=== PATIENT | female | born 1985 | race Caucasian/White ===

== ENCOUNTER 2018-03-26 10:40 | Emergency (ER) | payer OTHER ==
[2018-03-26 11:01] VITALS: RESP 18
[2018-03-26] MEDS ORDERED: SODIUM CHLORIDE 0.9% 1,000 ML IV ONE (11:16)
--- NOTE | 2018-03-26 11:19 | ED ---
General Adult HPI - General Chief complaint: Nausea/Vomiting/Diarrhea Stated complaint: vomiting Time Seen by Provider: 03/26/18 11:10 Source: patient, RN notes reviewed, old records reviewed Mode of arrival: ambulatory Limitations: no limitations - History of Present Illness Initial comments: 33-year-old female presenting with 1 week history of cough and cold symptoms. She complains of nasal congestion, mild sore throat, she complains of abdominal pain as well as myalgias in her legs. She had several episodes of vomiting over the past 24 hours. This was nonbloody nonbilious. No dysuria. She is currently on her menstrual cycle. She is otherwise healthy, not on any daily medications. She does admit to having one drink of alcohol yesterday evening. - Related Data Home Medications Medication Instructions Recorded Confirmed Ibuprofen [Motrin Ib] 200 mg PO Q6H PRN 03/26/18 03/26/18 Multivitamin,Therapeutic [Thera] 1 tab PO DAILY 03/26/18 03/26/18 Previous Rx's Medication Instructions Recorded Azithromycin [Zithromax Z-pack] 0 mg PO DIRECTED #6 tab 03/26/18 Allergies Allergy/AdvReac Type Severity Reaction Status Date / Time amoxicillin Allergy Anaphylaxis Verified 03/26/18 11:01 Sulfa (Sulfonamide Allergy Unknown Verified 03/26/18 11:01 Antibiotics) Childhood tamsulosin [From Flomax] Allergy Anaphylaxis Verified 03/26/18 11:31 Review of Systems ROS Statement: Those systems with pertinent positive or pertinent negative responses have been documented in the HPI. ROS Other: All systems not noted in ROS Statement are negative. Past Medical History Past Medical History: No Reported History History of Any Multi-Drug Resistant Organisms: None Reported Past Surgical History: Section Past Psychological History: No Psychological Hx Reported Smoking Status: Never smoker Past Alcohol Use History: None Reported Past Drug Use History: None Reported General Exam Limitations: no limitations General appearance: alert, in no apparent distress Head exam: Present: atraumatic, normocephalic Eye exam: Present: normal appearance, PERRL ENT exam: Absent: normal oropharynx (Pharyngeal erythema, no tonsillar swelling or exudate, nasal congestion) Neck exam: Present: normal inspection, full ROM. Absent: tenderness, meningismus Respiratory exam: Present: normal lung sounds bilaterally. Absent: respiratory distress, wheezes Cardiovascular Exam: Present: regular rate, normal rhythm GI/Abdominal exam: Present: soft, tenderness (Mild epigastric tenderness). Absent: distended, guarding, rebound Extremities exam: Present: normal inspection, normal capillary refill. Absent: pedal edema, calf tenderness Neurological exam: Present: alert, oriented X3, CN II-XII intact. Absent: motor sensory deficit Psychiatric exam: Present: normal affect, normal mood Skin exam: Present: warm, dry, intact. Absent: cyanosis, diaphoretic Course Vital Signs 03/26/18 10:58 Temperature 97.8 F Pulse Rate 80 Respiratory 18 Rate Blood Pressure 131/83 O2 Sat by Pulse 99 Oximetry Medical Decision Making - Medical Decision Making 33-year-old female presenting with URI symptoms for the past 7 days. Patient is overall well-appearing with stable vitals. Given the duration of her symptoms and the presence of cough, chest x-rays obtained which is negative for focal pneumonia, patient has leukocytosis and elevated platelet count consistent with an acute infection. CMP is unremarkable, urinalysis negative for infection, influenza is obtained given the myalgias and upper respiratory symptoms, this is negative. Patient will be prescribed azithromycin as her symptoms have been present for the past 7 days. She will follow-up with her primary care physician. - Lab Data Result diagrams: 03/26/18 12:08 03/26/18 12:08 Lab Results 03/26/18 03/26/18 03/26/18 Range/Units 12:08 12:08 12:08 WBC 13.6 H (3.8-10.6) k/uL RBC 4.76 (3.80-5.40) m/uL Hgb 13.8 (11.4-16.0) gm/dL Hct 42.5 (34.0-46.0) % MCV 89.3 (80.0-100.0) fL MCH 28.9 (25.0-35.0) pg MCHC 32.4 (31.0-37.0) g/dL RDW 12.4 (11.5-15.5) % Plt Count 455 H (150-450) k/uL Neutrophils % 84 % Lymphocytes % 12 % Monocytes % 3 % Eosinophils % 1 % Basophils % 0 % Neutrophils # 11.4 H (1.3-7.7) k/uL Lymphocytes # 1.6 (1.0-4.8) k/uL Monocytes # 0.4 (0-1.0) k/uL Eosinophils # 0.1 (0-0.7) k/uL Basophils # 0.0 (0-0.2) k/uL Sodium 144 (137-145) mmol/L Potassium 4.1 (3.5-5.1) mmol/L Chloride 106 (98-107) mmol/L Carbon Dioxide 25 (22-30) mmol/L Anion Gap 13 mmol/L BUN 15 (7-17) mg/dL Creatinine 0.53 (0.52-1.04) mg/dL Est GFR (CKD-EPI)AfAm >90 (>60 ml/min/1.73 sqM) Est GFR (CKD-EPI)NonAf >90 (>60 ml/min/1.73 sqM) Glucose 101 H (74-99) mg/dL Calcium 9.6 (8.4-10.2) mg/dL Total Bilirubin 0.5 (0.2-1.3) mg/dL AST 27 (14-36) U/L ALT 34 (9-52) U/L Alkaline Phosphatase 92 (38-126) U/L Total Protein 8.2 (6.3-8.2) g/dL Albumin 4.8 (3.5-5.0) g/dL Urine Color Urine Appearance (Clear) Urine pH (5.0-8.0) Ur Specific [place] (1.001-1.035) Urine Protein (Negative) Urine Glucose (UA) (Negative) Urine Ketones (Negative) Urine Blood (Negative) Urine Nitrite (Negative) Urine Bilirubin (Negative) Urine Urobilinogen (<2.0) mg/dL Ur Leukocyte Esterase (Negative) Urine RBC (0-5) /hpf Urine WBC (0-5) /hpf Ur Squamous Epith Cells (0-4) /hpf Urine Mucus (None) /hpf Urine HCG, Qual (Not Detectd) Influenza Type A RNA Not Detected (Not Detectd) Influenza Type B (PCR) Not Detected (Not Detectd) 03/26/18 03/26/18 Range/Units 12:19 12:19 WBC (3.8-10.6) k/uL RBC (3.80-5.40) m/uL Hgb (11.4-16.0) gm/dL Hct (34.0-46.0) % MCV (80.0-100.0) fL MCH (25.0-35.0) pg MCHC (31.0-37.0) g/dL RDW (11.5-15.5) % Plt Count (150-450) k/uL Neutrophils % % Lymphocytes % % Monocytes % % Eosinophils % % Basophils % % Neutrophils # (1.3-7.7) k/uL Lymphocytes # (1.0-4.8) k/uL Monocytes # (0-1.0) k/uL Eosinophils # (0-0.7) k/uL Basophils # (0-0.2) k/uL Sodium (137-145) mmol/L Potassium (3.5-5.1) mmol/L Chloride (98-107) mmol/L Carbon Dioxide (22-30) mmol/L Anion Gap mmol/L BUN (7-17) mg/dL Creatinine (0.52-1.04) mg/dL Est GFR (CKD-EPI)AfAm (>60 ml/min/1.73 sqM) Est GFR (CKD-EPI)NonAf (>60 ml/min/1.73 sqM) Glucose (74-99) mg/dL Calcium (8.4-10.2) mg/dL Total Bilirubin (0.2-1.3) mg/dL AST (14-36) U/L ALT (9-52) U/L Alkaline Phosphatase (38-126) U/L Total Protein (6.3-8.2) g/dL Albumin (3.5-5.0) g/dL Urine Color Yellow Urine Appearance Cloudy H (Clear) Urine pH 6.5 (5.0-8.0) Ur Specific [place] 1.021 (1.001-1.035) Urine Protein Trace H (Negative) Urine Glucose (UA) Negative (Negative) Urine Ketones 1+ H (Negative) Urine Blood Small H (Negative) Urine Nitrite Negative (Negative) Urine Bilirubin Negative (Negative) Urine Urobilinogen <2.0 (<2.0) mg/dL Ur Leukocyte Esterase Negative (Negative) Urine RBC 3 (0-5) /hpf Urine WBC 2 (0-5) /hpf Ur Squamous Epith Cells 5 H (0-4) /hpf Urine Mucus Many H (None) /hpf Urine HCG, Qual Not Detected (Not Detectd) Influenza Type A RNA (Not Detectd) Influenza Type B (PCR) (Not Detectd) Disposition Clinical Impression: Dehydration, Upper respiratory tract infection Disposition: HOME SELF-CARE Condition: Good Instructions: Upper Respiratory Infection (ED) Additional Instructions: Please follow up with primary care physician for reevaluation. Prescriptions: Azithromycin [Zithromax Z-pack] 0 mg PO DIRECTED #6 tab Is patient prescribed a controlled substance at d/c from ED?: No Referrals: None,Stated [Primary Care Provider] - 1-2 days Time of Disposition: 14:08
[2018-03-26 12:23] LABS: Basophils % (A) 0 %; Eosinophils # (A) 0.1 k/uL (0-0.7); Eosinophils % (A) 1 %; HCT 42.5 % (34.0-46.0); HGB 13.8 gm/dL (11.4-16.0); Lymphocytes # (A) 1.6 k/uL (1.0-4.8); Lymphocytes % (A) 12 %; MCH 28.9 pg (25.0-35.0); MCHC 32.4 g/dL (31.0-37.0); MCV 89.3 fL (80.0-100.0); Mean Platelet Volume 6.6; Monocytes # (A) 0.4 k/uL (0-1.0); Monocytes % (A) 3 %; Neutrophils # (A) 11.4 k/uL (1.3-7.7); Neutrophils % (A) 84 %; Platelet Count 455 k/uL (150-450); RBC 4.76 m/uL (3.80-5.40); RDW 12.4 % (11.5-15.5); WBC 13.6 k/uL (3.8-10.6)
[2018-03-26 12:31] LABS: ALT 34 U/L (9-52); AST 27 U/L (14-36); Albumin 4.8 g/dL (3.5-5.0); Alkaline Phosphatase 92 U/L (38-126); Anion Gap 13 mmol/L; Blood Urea Nitrogen 15 mg/dL (7-17); Calcium 9.6 mg/dL (8.4-10.2); Carbon Dioxide 25 mmol/L (22-30); Chloride 106 mmol/L (98-107); Glucose 101 mg/dL (74-99); Potassium 4.1 mmol/L (3.5-5.1); Sodium 144 mmol/L (137-145); Total Bilirubin 0.5 mg/dL (0.2-1.3); Total Protein 8.2 g/dL (6.3-8.2)
[2018-03-26 13:32] LABS: Appearance,Urine Cloudy (Clear); Bilirubin,Urine Negative (Negative); Blood,Urine Small (Negative); Color,Urine Yellow; Glucose,Urine (UA) Negative (Negative); Ketones,Urine 1+ (Negative); Leukocyte Esterase,Urine Negative (Negative); Mucus,Urine Many /hpf; Nitrite,Urine Negative (Negative); PH, Urine 6.5 (5.0-8.0); Protein,Urine Trace (Negative); RBC,Urine 3 /hpf (0-5); Specific Gravity,Urine 1.021 (1.001-1.035); Squamous Epithelial Cell,Urine 5 /hpf (0-4); Urobilinogen,Urine <2.0 mg/dL (<2.0); WBC,Urine 2 /hpf (0-5)
--- NOTE | 2018-03-26 13:54 | XR ---
EXAMINATION TYPE: XR chest 2V DATE OF EXAM: 03/26/2018 COMPARISON: NONE HISTORY: Vomiting cough and congestion. Chest pain per order. TECHNIQUE: Frontal and lateral views of the chest are obtained. FINDINGS: There is no focal air space opacity, pleural effusion, or pneumothorax seen. The cardiac silhouette size is within normal limits. The osseous structures are intact. IMPRESSION: No acute cardiopulmonary process.
[2018-03-26 14:19] VITALS: BP 115/72; PULSE 70; TEMP 98.6
== END 2018-03-26 14:19 | disposition home or self-care (01) ==
LOC: EC 10:40
DX: J06.9 Acute upper respiratory infection, unspecified (principal); E86.0 Dehydration; Z32.02 Encounter for pregnancy test, result negative; Z88.0 Allergy status to penicillin; Z88.2 Allergy status to sulfonamides; Z88.8 Allergy status to other drugs, medicaments and biological substances
CPT/HCPCS: 36415; 71046; 80053; 81001; 81025; 85025; 87502; 96360; 99284

== ENCOUNTER 2020-09-24 16:43 | Emergency (ER) | payer BC, OTHER ==
[2020-09-24 17:55] VITALS: TEMP 98
--- NOTE | 2020-09-24 18:37 | XR ---
EXAMINATION TYPE: XR chest 2V DATE OF EXAM: 09/24/2020 COMPARISON: 03/26/2018 HISTORY: Short of breath TECHNIQUE: 2 views FINDINGS: There is some patchy airspace pneumonia in the right lower lobe. There is also right middle lobe involvement. There is a small area of infiltrate left lower lobe. Heart and mediastinum are nor mal. There are no hilar masses. There is no pleural effusion. IMPRESSION: Bilateral pneumonia is new compared to old exam. Normal heart.
[2020-09-24] MEDS ORDERED: dexAMETHasone 2 MG TAB PO STA (20:04)
--- NOTE | 2020-09-24 20:25 | ED ---
General Adult HPI - General Chief complaint: Fever Stated complaint: fever Time Seen by Provider: 09/24/20 19:42 Source: patient Mode of arrival: ambulatory Limitations: no limitations - History of Present Illness Initial comments: Patient is a 35-year-old female presenting to the emergency Department with complaints of fevers last 5 days and a recent Covid exposure. Patient states she works for [employer] [place] and has been exposed to Covid approximately 5 days ago. She states just today she started having a cough and feels a little short of breath. She's had some mild nausea and no vomiting, no diarrhea. She has been eating a little bit last is still able to drink plenty of fluids. She's been taking Tylenol and Motrin for her fevers. He asthma, COPD, she is a nonsmoker. She has no pertinent past medical history. She denies being . She has no further complaints at this time. Upon arrival to the ER, she was slightly tachycardia however she states she was really anxious when she checked in. Rest of her vitals are normal. - Related Data Home Medications Medication Instructions Recorded Confirmed Ibuprofen [Motrin Ib] 200 mg PO Q6H PRN 03/26/18 03/26/18 Multivitamin,Therapeutic [Thera] 1 tab PO DAILY 03/26/18 03/26/18 Previous Rx's Medication Instructions Recorded Azithromycin [Zithromax Z-pack] 0 mg PO DIRECTED #6 tab 03/26/18 Albuterol Inhaler [Ventolin Hfa 4 puff INHALATION RT-QID PRN #1 09/24/20 Inhaler] puff Dexamethasone [Decadron] 6 mg PO DAILY 5 Days #5 tablet 09/24/20 Allergies Allergy/AdvReac Type Severity Reaction Status Date / Time amoxicillin Allergy Anaphylaxis Verified 09/24/20 17:55 Sulfa (Sulfonamide Allergy Unknown Verified 09/24/20 17:55 Antibiotics) Childhood tamsulosin [From Flomax] Allergy Anaphylaxis Verified 09/24/20 17:55 Review of Systems ROS Statement: Those systems with pertinent positive or pertinent negative responses have been documented in the HPI. ROS Other: All systems not noted in ROS Statement are negative. Past Medical History Past Medical History: No Reported History History of Any Multi-Drug Resistant Organisms: None Reported Past Surgical History: Section Additional Past Surgical History / Comment(s): miscarriage Past Psychological History: No Psychological Hx Reported Smoking Status: Never smoker Past Alcohol Use History: None Reported Past Drug Use History: None Reported General Exam - General Exam Comments Initial Comments: GENERAL: Patient is well-developed and well-nourished. Patient is nontoxic and in no acute distress. HEAD: Atraumatic, normocephalic. EYES: Pupils equal round and reactive to light, extraocular movements intact, sclera anicteric, conjunctiva are normal. Eyelids were unremarkable. ENT: TMs normal, nares patent, oropharynx clear without exudates. Moist mucous membranes. NECK: Normal range of motion, supple without lymphadenopathy or JVD. LUNGS: Unlabored respirations. Breath sounds clear to auscultation bilaterally and equal. No wheezes rales or rhonchi. HEART: Regular rate and rhythm without murmurs, rubs or gallops. ABDOMEN: Soft, nontender, normoactive bowel sounds. No guarding, no rebound. No masses appreciated. : Deferred MUSCULOSKELETAL: Normal extremities with adequate strength and normal range of motion, no pitting or edema. No clubbing or cyanosis. NEUROLOGICAL: Patient is alert and oriented x 3. Motor and sensory are also intact. Cranial nerves II through XII grossly intact. Symmetrical smile. Normal speech, normal gait. PSYCH: Normal mood, normal affect. SKIN: Warm, Dry, normal turgor, no rashes or lesions noted. Limitations: no limitations Course Vital Signs 09/24/20 17:52 Temperature 98.0 F Pulse Rate 115 H Respiratory 19 Rate Blood Pressure 127/81 O2 Sat by Pulse 96 Oximetry Medical Decision Making - Medical Decision Making Patient is a 35-year-old female here with a fever for the past 5 days as well as a cough and some mild shortness of breath that started today. She was exposed to Covid 5 days ago. She has not been vaccinated yet. Her rapid Covid test is positive today, her chest x-ray shows evidence of mild covid pneumonia. Her vital signs are stable. Patient does not qualify for antiviral infusion secondary to no pertinent past medical conditions, BMI is normal. I discussed with patient and she is to continue Tylenol or Motrin for fever control, I will prescribe her steroids and inhaler to use for her symptoms. She can follow-up with her primary care physician. Return parameters were discussed with the patient and she verbalized understanding. She is stable for discharge. Case discussed with Dr. Calhoun. - Lab Data Lab Results 09/24/20 Range/Units 17:58 Coronavirus (PCR) Detected A (Not Detectd) Disposition Clinical Impression: Pneumonia due to COVID-19 virus Disposition: HOME SELF-CARE Condition: Stable Instructions (If sedation given, give patient instructions): Coronavirus Disease 2019 (COVID-19) Additional Instructions: Please return to the Emergency Department if symptoms worsen or any other con cerns. Continue with steroid starting tomorrow as discussed. Use inhaler every 4 hours for shortness of breath, cough. Continue with Tylenol and/or Motrin for fever control. Increase your fluid intake. Follow-up with your regular doctor. Prescriptions: Dexamethasone [Decadron] 6 mg PO DAILY 5 Days #5 tablet Albuterol Inhaler [Ventolin Hfa Inhaler] 4 puff INHALATION RT-QID PRN #1 puff PRN Reason: Shortness Of Breath Is patient prescribed a controlled substance at d/c from ED?: No Referrals: None,Stated [Primary Care Provider] - 1-2 days Time of Disposition: 20:24
[2020-09-24 20:34] VITALS: BP 130/82; PULSE 95; RESP 20
== END 2020-09-24 21:25 | disposition home or self-care (01) ==
LOC: EC 16:43
DX: U07.1 COVID-19 (principal); J12.82 Pneumonia due to coronavirus disease 2019; J44.9 Chronic obstructive pulmonary disease, unspecified; Z79.899 Other long term (current) drug therapy; Z79.1 Long term (current) use of non-steroidal anti-inflammatories (NSAID)
CPT/HCPCS: 87635; 71046; 99285; J8540